=== PATIENT | female | born 1955 | race Caucasian/White ===

== ENCOUNTER 2021-04-16 12:11 | Inpatient (IN) | payer MEDICARE ==
[~2021-04-16] VITALS: Ht 165.1 cm; Wt 54.4 kg
[2021-04-16] MEDS ORDERED: BP MEDICATION (12:21)
[2021-04-16] MEDS ORDERED: LORAZEPAM 2 MG/1 ML VIAL ONE (12:30)
[2021-04-16] MEDS ORDERED: THIAMINE HCL 200 MG/2 ML VIAL IV ONE (12:45)
[2021-04-16] MEDS ORDERED: FOLIC ACID 5 MG/ML VIAL IV ONE ×2 (12:45→12:56)
[2021-04-16] MEDS ORDERED: IV NS 1000 ML 1,000 ML IV ONE (12:45)
[2021-04-16 12:48] LABS: HEMATOCRIT 30.3 % (31.2-41.9); MEAN CORPUSCULAR HEMOGLOBIN 39.8 uug (24.7-32.8); MEAN CORPUSCULAR VOLUME 114.8 fL (75.5-95.3); PLATELET COUNT (AUTO) 243 K/uL (179-408)
[2021-04-16 12:54] LABS: ETHANOL < 3 MG/DL (0-0)
[2021-04-16] MEDS ORDERED: THIAMINE HCL 200 MG/2 ML VIAL ONE ×2 (12:56→23:34)
[2021-04-16] MEDS ORDERED: MAGNESIUM SULFATE/D5W 100 ML ONE (12:58)
[2021-04-16 12:59] LABS: BILIRUBIN,DIRECT 0.5 mg/dL (0.0-0.2); BILIRUBIN,TOTAL 1.1 mg/dL (0.2-1.0); CREATININE 0.6 mg/dL (0.6-1.3); POTASSIUM 3.6 mmol/L (3.5-5.1); TOTAL PROTEIN, SERUM 6.2 g/dL (6.4-8.2)
[2021-04-16] MEDS: MAGNESIUM SULFATE/D5W 100 ML IV SCH ×2 (13:23→13:25)
--- NOTE | 2021-04-16 20:37 | NUR ---
Room Assignment: 310 for Tele Admit
--- NOTE | 2021-04-16 20:47 | NUR ---
Report given to GRACIE Mi.
--- NOTE | 2021-04-16 21:08 | NUR ---
Pt. admitted to Tele , under care of Bhaskar Nathan DNP Belongs List completed
[2021-04-16 21:50] VITALS: BP 104/53
[2021-04-16] MEDS ORDERED: ACETAMINOPHEN 325 MG TABLET PO PRN (22:15)
[2021-04-16] MEDS ORDERED: THIAMINE HCL IV ONE (22:15)
[2021-04-16] MEDS ORDERED: Z GUARD REMEDY PASTE 57 GM TUBE TOP PRN (22:15)
[2021-04-16] MEDS ORDERED: DEXTROSE 5% IV ONE (22:15)
[2021-04-16] MEDS ORDERED: ONDANSETRON 4 MG/2 ML VIAL IV PRN (22:15)
[2021-04-16 22:28] LABS: MAGNESIUM 1.8 mg/dL (1.8-2.4); PHOSPHOROUS 3.3 mg/dL (2.5-4.9)
[2021-04-16] MEDS: IV NS 1000 ML 1,000 ML IV PRN (22:41)
[2021-04-16] MEDS: ENOXAPARIN SODIUM 40 MG/0.4 ML DISP.SYRIN SQ SCH (22:42)
--- NOTE | 2021-04-16 23:00 | NUR ---
Pt arrived from ER in stable condition at 2135H. Denies pain or SOB. Denies headache or dizziness. Able to make needs known, AOx4. All belongings accounted for. IV site intact and patent running ordered IV fluids, patient tolerating well. Care transferred over to Kash [employer]LEVISION [employer]ABLE INST[employer]ER. Bed is locked and in lowest position, call light within reach. No other issues or concerns at this time.
--- NOTE | 2021-04-16 23:30 | NUR ---
RECEIVED REPORT FROM RN. PATIENT AWAKE IN BED. A/O X4. DENIES ANY PAIN. VSS. IVF INFUSING WELL TO LEFT AC #20 GAUGE. CALL LIGHT IN REACH. ALL NEEDS ATTENDED. WILL CONTINUE TO MONITOR AND ASSESS.
--- NOTE | 2021-04-17 | NUR ---
PATIENT HAS SOME REDNESS NOTED ABOVE RIGHT EYEBROW. PATIENT STATED, "IT IS RED FROM SCRATCHING IT." REFUSED PICTURE TO BE TAKEN. WILL CONTINUE TO MONITOR AND ASSESS.
[2021-04-17 04:20] VITALS: BP 130/81
[2021-04-17] MEDS: PANTOPRAZOLE SODIUM 40 MG TABLET.DR PO SCH (06:12)
[2021-04-17 06:32] LABS: HEMATOCRIT 26.3 % (31.2-41.9); MEAN CORPUSCULAR HEMOGLOBIN 39.9 uug (24.7-32.8); MEAN CORPUSCULAR VOLUME 115.9 fL (75.5-95.3); PLATELET COUNT (AUTO) 204 K/uL (179-408)
[2021-04-17 06:44] LABS: THYROID STIMULATING HORMONE 4.091 mIU/mL (0.358-3.740)
[2021-04-17 06:53] LABS: BILIRUBIN,TOTAL 0.8 mg/dL (0.2-1.0); CREATININE 0.5 mg/dL (0.6-1.3); MAGNESIUM 1.9 mg/dL (1.8-2.4); PHOSPHOROUS 2.5 mg/dL (2.5-4.9); POTASSIUM 3.8 mmol/L (3.5-5.1); TOTAL PROTEIN, SERUM 5.1 g/dL (6.4-8.2)
--- NOTE | 2021-04-17 08:00 | NUR ---
RECEIVED CHANGE OF SHIFT REPORT. PT A/OX4, PT HAS SOME SCRAPES ON THE FACE, RADHA EYEBROW AND BAPTISM. PT ON ROOM AIR, NO SIGNS OF DISTRESS, NO REPORTS OF PAIN AT THIS TIME. PT BRP WITH ASSIST, IV ON THE LEFT AC 20G INFUSING NS AT 75. CALL LIGHT WITHIN REACH, WILL CONTINUE WITH PLAN OF CARE.
[2021-04-17] MEDS: THIAMINE HCL 100 MG TABLET PO SCH (09:27)
[2021-04-17] MEDS: MULTIVITAMINS,THERAPEUTIC TABLET PO SCH (09:27)
[2021-04-17] MEDS: FOLIC ACID 1 MG TABLET PO SCH (09:28)
[2021-04-17 11:45] VITALS: BP 135/78
[2021-04-17] MEDS: IV NS 1000 ML 1,000 ML IV PRN (15:39)
[2021-04-17 16:06] VITALS: BP 130/75
[2021-04-17] MEDS: KETOCONAZOLE 2% CREAM 30 GM TUBE TP SCH (18:12)
--- NOTE | 2021-04-17 19:12 | NUR ---
PT A/OX4, PT HAS SOME SCRAPES ON THE FACE, MEDICATED CREAM APPLIED TO FACE. PT ON ROOM AIR, NO SIGNS OF DISTRESS, NO REPORTS OF PAIN AT THIS TIME. ALL MEDICATIONS GIVEN ORDERED, ALL NEEDS MET THIS SHIFT. PT BRP WITH ASSIST, IV ON THE RIGHT AC 20G INFUSING NS AT 75. CALL LIGHT WITHIN REACH, WILL ENDORSE TO ONCOMING NURSE.
--- NOTE | 2021-04-17 20:00 | NUR ---
RECEIVED PATIENT AWAKE IN BED. A/O X3, BUT VERY FORGETFUL. DENIES ANY PAIN OR DISCOMFORT AT THIS TIME. NO RESP-. DISTRESS NOTED. REDNESS NOTED ABOVE RIGHT EYEBROW AND MANDAEISM, PATIENT REFUSED PICTURE TO BE TAKEN. VSS. IVF INFUSING WELL TO RIGHT FA #20 GAUGE. CALL LIGHT IN REACH. ALL NEEDS ATTENDED. WILL CONTINUE TO MONITOR AND ASSESS.
[2021-04-17] MEDS: ENOXAPARIN SODIUM 40 MG/0.4 ML DISP.SYRIN SQ SCH (20:17)
[2021-04-17 20:20] VITALS: BP 132/81
[2021-04-17] MEDS: LORAZEPAM 2 MG/1 ML VIAL IV PRN ×2 (21:44)
[2021-04-18] MEDS: TEMAZEPAM 7.5 MG CAPSULE PO PRN ×2 (00:53→23:32)
[2021-04-18 04:20] VITALS: BP 132/81
[2021-04-18] MEDS: PANTOPRAZOLE SODIUM 40 MG TABLET.DR PO SCH (06:16)
--- NOTE | 2021-04-18 06:48 | NUR ---
PATIENT ASLEEP IN BED. SLEPT AT INTERVALS. VSS. IVF INFUSING WELL TO RIGHT FA. BED ALARM ON. CALL LIGHT IN REACH. ALL NEEDS ATTENDED. WILL CONTINUE TO MONITOR AND ASSESS.
--- NOTE | 2021-04-18 07:10 | NUR ---
received patient in bed awake, patient stable. no complains of any SOB, pain or discomfort noted at this time. patient belongings and call light kept within reach. will continue to monitor.
[2021-04-18] MEDS: MULTIVITAMINS,THERAPEUTIC TABLET PO SCH (08:57)
[2021-04-18] MEDS: THIAMINE HCL 100 MG TABLET PO SCH (08:57)
[2021-04-18] MEDS: FOLIC ACID 1 MG TABLET PO SCH (08:57)
[2021-04-18] MEDS: KETOCONAZOLE 2% CREAM 30 GM TUBE TP SCH ×2 (08:58→16:45)
[2021-04-18] MEDS: IV NS 1000 ML 1,000 ML IV PRN (11:13)
[2021-04-18 11:54] VITALS: BP 133/84
[2021-04-18 15:09] VITALS: BP 124/70
[2021-04-18] MEDS ORDERED: LOSA50TA39 PO (15:50)
[2021-04-18] MEDS ORDERED: CITA20TA16 PO (15:51)
[2021-04-18] MEDS ORDERED: TORS20TA3 PO (15:52)
--- NOTE | 2021-04-18 18:10 | NUR ---
patient in bed awake, no complains of any SOB, pain or discomfort. IV intact and patent running 75ml/hr NS. call light and belongings within reach. safety precautions in place. will report to oncoming shift.
--- NOTE | 2021-04-18 19:30 | NUR ---
Received pt in bed, A&Ox4, verbally responsive, able to make needs known. Denies any pain or discomfort, no s/s of respiratory distress. IVF infusing well. Safety measures initiated, call light within reach.
[2021-04-18 20:20] VITALS: BP 130/75
[2021-04-18] MEDS: ENOXAPARIN SODIUM 40 MG/0.4 ML DISP.SYRIN SQ SCH (20:32)
[2021-04-19] MEDS: IV NS 1000 ML 1,000 ML IV PRN (00:49)
[2021-04-19 04:20] VITALS: BP 136/77
[2021-04-19] MEDS: PANTOPRAZOLE SODIUM 40 MG TABLET.DR PO SCH (06:20)
--- NOTE | 2021-04-19 07:00 | NUR ---
No significant change in condition noted, slept intermittently through the night. Tolerated due medications. IVF infusing well. Safety measures maintained at all times. All needs attended to and met
[2021-04-19] MEDS: MULTIVITAMINS,THERAPEUTIC TABLET PO SCH (08:14)
[2021-04-19] MEDS: THIAMINE HCL 100 MG TABLET PO SCH (08:14)
[2021-04-19] MEDS: FOLIC ACID 1 MG TABLET PO SCH (08:14)
[2021-04-19] MEDS ORDERED: LOSARTAN POTASSIUM 50 MG TABLET PO SCH (09:00)
[2021-04-19] MEDS ORDERED: FOLI1TAB94 PO (09:50)
[2021-04-19] MEDS ORDERED: KETO15CR2 TP (09:50)
[2021-04-19] MEDS ORDERED: MULT-24 PO (09:50)
[2021-04-19] MEDS ORDERED: THIA100T13 PO (09:50)
[2021-04-19] MEDS: KETOCONAZOLE 2% CREAM 30 GM TUBE TP SCH ×2 (10:10→16:20)
[2021-04-19 12:00] VITALS: BP 169/96
[2021-04-19] MEDS ORDERED: hydrALAZINE HCL 25 MG TABLET PO PRN (15:45)
[2021-04-19 15:48] VITALS: BP 170/99
[2021-04-19 16:28] VITALS: BP 155/93
--- NOTE | 2021-04-19 17:36 | NUR ---
d c orders received noted and carried out,dc instruction and rn report given to the pt and long term rn .dc heplock per md orders.pt left the facility via ambulances in stable condition
[2021-04-20] MEDS ORDERED: AMLODIPINE 5 MG TABLET PO SCH (09:00)
== END 2021-04-19 17:40 | DRG 57 ==
LOC: ER 12:13 → TELE3 20:52 → MEDSURG3 23:15
PROVIDERS: ADMIT Nurse Practitioner Acute Care; ATTEND Nurse Practitioner Acute Care
DX: G31.2 Degeneration of nervous system due to alcohol (principal); E87.1 Hypo-osmolality and hyponatremia; F10.988 Alcohol use, unspecified with other alcohol-induced disorder; R27.0 Ataxia, unspecified; Y90.0 Blood alcohol level of less than 20 mg/100 ml; D64.9 Anemia, unspecified; I10 Essential (primary) hypertension; Z20.822 Contact with and (suspected) exposure to COVID-19; D75.89 Other specified diseases of blood and blood-forming organs; R74.01 Elevation of levels of liver transaminase levels; E80.6 Other disorders of bilirubin metabolism; R29.6 Repeated falls; B36.8 Other specified superficial mycoses; Z87.891 Personal history of nicotine dependence
CPT/HCPCS: 36415; 70030-TC; 70450; 71045; 83550; 83690; 83735; 84100; 84443; 85025; 93005; 97161; A4663; G0378; G0480; J1650; J2060; J3411; J3475; J3490; J7030; J7060